=== PATIENT | female | born 1970 | race Caucasian/White ===

== ENCOUNTER 2019-01-02 07:13 | Outpatient (CLI) | payer OTHER | END 2019-01-02 07:15 | disposition home or self-care (01) | LOC: SONOGRAMA 07:13 | DX: E04.2 Nontoxic multinodular goiter (principal) ==

== ENCOUNTER → 2020-12-12 | Emergency (ER) | payer OTHER ==
[~2020-12-12] VITALS: Ht 170.2 cm; Wt 83.9 kg
[~2020-12-12] MED LIST: COZAAR25 MG; GLUMETZA500 MG; LEVOTHYROXINE25 MCG; PREVACID30 M1; TOPROL XL50 M1
== END | disposition home or self-care (01) ==
LOC: ER 18:43
DX: K57.32 Diverticulitis of large intestine without perforation or abscess without bleeding (principal); R10.32 Left lower quadrant pain

== ENCOUNTER 2022-04-21 20:19 | Emergency (ER) | payer OTHER ==
[~2022-04-21] VITALS: Ht 160 cm; Wt 84.4 kg
[2022-04-21] MEDS ORDERED: ROSUVASTATIN CAL5 MG PO (20:30)
[2022-04-21] MEDS ORDERED: BREO ELLIPTA 21 EACH IH (20:31)
[2022-04-21] MEDS ORDERED: SPIRIVA RESPIMAT4 G1 IH (20:31)
[2022-04-21] MEDS ORDERED: ZITHROMAX500 MG PO (23:05)
[2022-04-21] MEDS ORDERED: TUSNEL LIQUID178 ML PO (23:05)
[2022-04-21] MEDS ORDERED: XOPENEX0.63 MG/3 IH (23:05)
[2022-04-21] MEDS ORDERED: MEDROLPACK PO (23:05)
== END 2022-04-21 23:56 | disposition home or self-care (01) ==
LOC: ER 20:19
DX: J45.909 Unspecified asthma, uncomplicated (principal); E11.9 Type 2 diabetes mellitus without complications; Z79.84 Long term (current) use of oral hypoglycemic drugs; I10 Essential (primary) hypertension; Z20.822 Contact with and (suspected) exposure to COVID-19